=== PATIENT | female | born 1995 | race Caucasian/White ===

== ENCOUNTER 2017-11-28 16:01 | Emergency (ER) | payer BC ==
[2017-11-28 16:24] VITALS: BP 119/80
--- NOTE | 2017-11-28 16:25 | UC ---
Abdominal Pain Female HPI - HPI Summary HPI Summary: Pt presents with periumbilical and RLQ pain since this morning. She tells me that her pain began this morning around 0900 and has been getting progressively worse. Her pain feels like an ache and stabbing pain around her belly button and into her RLQ. She feels nauseous, but is still eating. Had loose bowel movements today. The pain has been so bad that standing up straight, lying flat , or walking causes her to become tearful due to the pain. Denies fever, chills , SOB, chest pain, vomiting, dysuria, or flank pain. - History of Current Complaint Chief Complaint: EDAbdPain Stated Complaint: ABDOMINAL PAIN Hx Obtained From: Patient Hx Last Menstrual Period: merena Onset/Duration: Sudden Onset Severity Initially: Moderate Severity Currently: Severe Pain Intensity: 8 Pain Scale Used: 0-10 Numeric Allergies/Adverse Reactions: Allergies Allergy/AdvReac Type Severity Reaction Status Date / Time No Known Allergies Allergy Verified 07/21/14 12:31 Home Medications: Home Medications ValACYclovir (*) [Valtrex 500 mg (*)] 11/28/17 [History] PMH/Surg Hx/FS Hx/Imm Hx - Additional Past Medical History Additional PMH: None Other History Of: Negative For: Anticoagulant Therapy - Surgical History Surgical History: None - Family History Known Family History: Positive: None - Social History Occupation: Employed Full-time Lives: With Family Alcohol Use: Daily Substance Use Type: None Smoking Status (MU): Heavy Every Day Tobacco Smoker Type: Cigarettes Amount Used/How Often: 1/2 ppd - Immunization History Most Recent Influenza Vaccination: fall 2013 Review of Systems Constitutional: Negative Skin: Negative Respiratory: Negative Cardiovascular: Negative Gastrointestinal: Abdominal Pain, Diarrhea, Nausea Genitourinary: Negative Neurovascular: Negative Neurological: Negative Psychological: Negative All Other Systems Reviewed And Are Negative: Yes Physical Exam - Summary Physical Exam Summary: GENERAL: NAD. WDWN. No pain distress. SKIN: No rashes, sores, lesions, or open wounds. NECK: Supple. Nontender. No lymphadenopathy. CHEST: CTAB. No r/r/w. No accessory muscle use. Breathing comfortably and in no distress. CV: RRR. Without m/r/g. Pulses intact. Brisk cap refill. ABDOMEN: Mild TTP LLQ. Moderate TTP RLQ and periumbilical. Soft. Mild guarding to RLQ. No distention. No organomegaly. No CVA tenderness. Bowel sounds present. Positive rovsings and obturator sign. Negative heel strike. NEURO: Alert. CN II-XII grossly intact. PSYCH: Age appropriate behavior. Triage Information Reviewed: Yes Vital Signs: Initial Vital Signs Temp 98.2 F 11/28/17 16:14 Pulse 62 11/28/17 16:14 Resp 16 11/28/17 16:14 BP 119/80 11/28/17 16:14 Pulse Ox 99 11/28/17 16:14 Abd Pain Female Course/Dx - Course Course Of Treatment: UA with 1+ blood and trace leuks. negative. Her symptoms and exam are concerning for appendicitis. I advised her to seek further evaluation in the ER - she was agreeable to this and elected to go by private car. - Differential Dx/Diagnosis Provider Diagnoses: RLQ pain. nausea Discharge - Sign-Out/Discharge Documenting (check all that apply): Discharge/Admit/Transfer - Discharge Plan Condition: Stable Disposition: HOME Referrals: Tashi Chang MD [Primary Care Provider] - Additional Instructions: Please go to the ER for further evaluation of your RLQ abdominal pain - Billing Disposition and Condition Condition: STABLE Disposition: HOME
== END 2017-11-28 17:03 | disposition home or self-care (01) ==
LOC: UCEAST 16:01
DX: R10.31 Right lower quadrant pain (principal); R11.0 Nausea; Z32.02 Encounter for pregnancy test, result negative; F17.210 Nicotine dependence, cigarettes, uncomplicated
CPT/HCPCS: 81003; 84702; 87086; 99202; G0463

== ENCOUNTER 2017-11-28 17:23 | Emergency (ER) | payer BC ==
[2017-11-28] MEDS ORDERED: Ketorolac INJ* 30 MG/ML 1 ML VIAL IV PUSH ONE (18:48)
[2017-11-28] MEDS ORDERED: Ondansetron ODT TAB* 4 MG PO ONE (18:48)
[2017-11-28] MEDS ORDERED: NS 0.9% 1000 ML* 1,000 ML IV ONE (18:48)
[2017-11-28 19:07] LABS: ABS Basophils 0 10^3/ul (0-0.2); ABS Eosinophils 0.1 10^3/ul (0-0.6); ABS Lymphocytes 2.2 10^3/ul (1.0-4.8); ABS Monocytes 0.6 10^3/ul (0-0.8); ABS Neutrophils 6.5 10^3/ul (1.5-7.7); ABS Nucleated RBC 0 10^3/ul; Eosinophil % 1.5 % (0-6); Hematocrit 38 % (35-47); Hemoglobin 13.3 g/dl (12.0-16.0); Mean Corpuscular HGB Conc 35 g/dl (31-36); Mean Corpuscular Hemoglobin 34 pg (27-31); Mean Corpuscular Volume 96 fL (80-97); Nucleated Red Blood Cells % 0; Platelet Count 304 10^3/ul (150-450); Red Blood Count 3.95 10^6/ul (4.0-5.4); Red Cell Distribution Width 13 % (10.5-15); White Blood Count 9.4 10^3/ul (3.5-10.8)
[2017-11-28 19:25] LABS: EGFR Non-African American 72.3 (>60)
--- NOTE | 2017-11-28 20:29 | RAD ---
HISTORY: Right upper quadrant pain. COMPARISONS: None TECHNIQUE: Multiple transverse and longitudinal ultrasound images were obtained of the right upper quadrant. FINDINGS: LIVER: The liver is normal in dimensions and echogenicity. Normal hepatic and portal venous blood flow is duplicated with color flow imaging. There is no gross intrahepatic biliary duct dilatation. GALLBLADDER AND EXTRAHEPATIC BILIARY DUCT: The gallbladder is mostly contracted which limits evaluation. The gallbladder is normal in appearance without intraluminal stones or other soft tissue masses. There is no pericholecystic fluid or gallbladder wall thickening. The common bile duct measures a maximum diameter of 2 mm. PANCREAS: The portions of the pancreas not obscured by bowel gas are normal in appearance. RIGHT KIDNEY: The right kidney is normal in size, morphology and echogenicity. AORTA AND IVC: The visualized portions are normal in appearance and not pathologically dilated. IMPRESSION: THE GALLBLADDER IS CONTRACTED WHICH LIMITS EVALUATION IN THIS OTHERWISE NORMAL RIGHT UPPER QUADRANT ULTRASOUND.
[2017-11-28 21:47] VITALS: BP 124/81
--- NOTE | 2017-11-28 22:30 | ED ---
Abdominal Pain/Female - HPI Summary HPI Summary: Pt. is a 22-year-old female who presents to emergency department for right upper quadrant abdominal pain times one day. Pain is intermittent. Pain initially started about 15 minutes after eating. Patient admits to associated symptoms of nausea. Denies vomiting. Also notes loose stools. Denies urinary symptoms. Denies upper respiratory symptoms, fever or chills. No significant past medical history. Symptoms are moderate in severity. - History of Current Complaint Chief Complaint: EDAbdPain Stated Complaint: ABD PAIN Time Seen by Provider: 11/28/17 18:41 Hx Obtained From: Patient Hx Last Menstrual Period: merena Pain Intensity: 2 Pain Scale Used: 0-10 Numeric Allergies/Adverse Reactions: Allergies Allergy/AdvReac Type Severity Reaction Status Date / Time No Known Allergies Allergy Verified 11/28/17 17:28 Home Medications: Home Medications ValACYclovir (*) [Valtrex 500 mg (*)] 500 mg PO DAILY 11/28/17 [History Confirmed 11/28/17] PMH/Surg Hx/FS Hx/Imm Hx Previously Healthy: Yes Endocrine/Hematology History: Denies: Hx Anticoagulant Therapy, Hx Diabetes Cardiovascular History: Denies: Hx Hypertension, Hx Pacemaker/ICD Respiratory History: Denies: Hx Asthma, Hx Chronic Obstructive Pulmonary Disease (COPD) Neurological History: Denies: Hx Dementia Psychiatric History: Denies: Hx Eating Disorder, Hx of Violent Episodes Against Others Infectious Disease History: No Infectious Disease History: Denies: Hx Clostridium Difficile, Hx Hepatitis, Hx Human Immunodeficiency Virus (HIV), Hx Shingles, Hx Tuberculosis, Hx Known/Suspected VRE, Hx Known/ Suspected VRSA, History Other Infectious Disease, Traveled Outside the [place] in Last 30 Days - Social History Occupation: Employed Full-time Lives: With Family Alcohol Use: Daily Alcohol Amount: 1 glass wine Substance Use Type: Reports: None Smoking Status (MU): Light Every Day Tobacco Smoker Type: Cigarettes Amount Used/How Often: 1/2 ppd Review of Systems Constitutional: Negative Negative: Fever, Chills Eyes: Negative ENT: Negative Cardiovascular: Negative Negative: Palpitations, Chest Pain Negative: Shortness Of Breath, Cough Positive: Abdominal Pain, Diarrhea, Nausea. Negative: Vomiting Genitourinary: Negative All Other Systems Reviewed And Are Negative: Yes Physical Exam Triage Information Reviewed: Yes Vital Signs On Initial Exam: Initial Vitals Temp Pulse Resp BP Pulse Ox 99.2 F 75 16 132/85 98 11/28/17 17:25 11/28/17 17:25 11/28/17 17:25 11/28/17 17:25 11/28/17 17:25 Vital Signs Reviewed: Yes Appearance: Positive: Well-Appearing - Patient lying in bed in no acute distress. Skin: Positive: Warm, Dry Head/Face: Positive: Normal Head/Face Inspection Eyes: Positive: Normal, ALEXYS Neck: Positive: Supple Respiratory/Lung Sounds: Positive: Clear to Auscultation, Breath Sounds Present Cardiovascular: Positive: Normal, RRR Abdomen Description: Positive: Other: - Abdomen is soft with mild pain to the right upper quadrant. Negative Shay's sign. No CVA tenderness bilaterally. Neurological: Positive: Normal, CN Intact II-III Diagnostics - Vital Signs Vital Signs Temp Pulse Resp BP Pulse Ox 11/28/17 21:46 98.8 F 71 16 124/81 99 11/28/17 17:25 99.2 F 75 16 132/85 98 - Laboratory Lab Results: Lab Results 11/28/17 11/28/17 Range/Units 18:58 18:58 WBC 9.4 (3.5-10.8) 10^3/ul RBC 3.95 L (4.0-5.4) 10^6/ul Hgb 13.3 (12.0-16.0) g/dl Hct 38 (35-47) % MCV 96 (80-97) fL MCH 34 H (27-31) pg MCHC 35 (31-36) g/dl RDW 13 (10.5-15) % Plt Count 304 (150-450) 10^3/ul MPV 7.0 L (7.4-10.4) um3 Neut % (Auto) 69.0 (38-83) % Lymph % (Auto) 23.0 L (25-47) % Freestone % (Auto) 6.3 (0-7) % Eos % (Auto) 1.5 (0-6) % Baso % (Auto) 0.2 (0-2) % Absolute Neuts (auto) 6.5 (1.5-7.7) 10^3/ul Absolute Lymphs (auto) 2.2 (1.0-4.8) 10^3/ul Absolute Monos (auto) 0.6 (0-0.8) 10^3/ul Absolute Eos (auto) 0.1 (0-0.6) 10^3/ul Absolute Basos (auto) 0 (0-0.2) 10^3/ul Absolute Nucleated RBC 0 10^3/ul Nucleated RBC % 0 Sodium 139 (139-145) mmol/L Potassium 3.6 (3.5-5.0) mmol/L Chloride 104 (101-111) mmol/L Carbon Dioxide 26 (22-32) mmol/L Anion Gap 9 (2-11) mmol/L BUN 16 (6-24) mg/dL Creatinine 0.95 (0.51-0.95) mg/dL Est GFR ( Amer) 92.9 (>60) Est GFR (Non-Af Amer) 72.3 (>60) BUN/Creatinine Ratio 16.8 (8-20) Glucose 97 (70-100) mg/dL Calcium 9.4 (8.6-10.3) mg/dL Total Bilirubin 0.60 (0.2-1.0) mg/dL AST 13 (13-39) U/L ALT 11 (7-52) U/L Alkaline Phosphatase 45 (34-104) U/L Total Protein 7.4 (6.4-8.9) g/dL Albumin 4.5 (3.2-5.2) g/dL Globulin 2.9 (2-4) g/dL Albumin/Globulin Ratio 1.6 (1-3) Lipase 14 (11.0-82.0) U/L Beta HCG, Quant < 0.60 mIU/mL Result Diagrams: 11/28/17 18:58 11/28/17 18:58 Lab Statement: Any lab studies that have been ordered have been reviewed, and results considered in the medical decision making process. Abdominal Pain Fem Course/Dx - Course Course Of Treatment: Presenting to the ear for intermittent right upper quadrant abdominal pain. She does have mild right upper quadrant pain on exam. We'll obtain labs and gallbladder ultrasound further evaluation. Patient was given IV Toradol and Zofran. Labs are unremarkable. Gallbladder ultrasound is negative for acute findings, reading per radiology. Reexamination patient is resting comfortably. She states her pain was mildly relieves but did return. She has benign abdominal exam. Results were discussed. Recommend close follow- up with family doctor for possible referral to GI for HIDA scan. Advised Tylenol for pain as directed. To avoid foods high in fat, degrees, sugar. Return to the ER symptoms change or worsen. Patient understands and agrees with this plan. - Diagnoses Differential Diagnosis: Positive: Appendicitis, Bowel Obstruction, Ectopic , Gall Bladder Disease, Hepatitis Provider Diagnoses: Abdominal pain Discharge - Sign-Out/Discharge Documenting (check all that apply): Discharge/Admit/Transfer - Discharge Plan Condition: Good Disposition: HOME Patient Education Materials: Gallbladder Ejection Fraction (DC), Abdominal Pain (ED) Referrals: Tashi Chang MD [Primary Care Provider] - Additional Instructions: Call your PCP tomorrow for further evaluation You may need referred to GI for a HIDA scan to evaluate gallbladder Avoid foods high in fat, grease, sugar Tylenol for pain as directed Return to ER for increased pain, fever, vomiting - Billing Disposition and Condition Condition: GOOD Disposition: HOME
== END 2017-11-28 21:46 | disposition home or self-care (01) ==
LOC: ED 17:23
DX: R10.11 Right upper quadrant pain (principal); F17.210 Nicotine dependence, cigarettes, uncomplicated
CPT/HCPCS: 36415; 76705; 80053; 83690; 84702; 85025; 96361; 96374; 99284; A9270-GY; J1885

== ENCOUNTER 2021-06-23 11:35 | Inpatient (IN) ==
[2021-06-23] MEDS ORDERED: Lactated Ringers 1000 ml BAG 1,000 ML IV ONE ×2 (11:38→16:20)
[2021-06-23] MEDS ORDERED: Lactated Ringers 1000 ml BAG 1,000 ML IV SCH ×3 (12:00→20:00)
[2021-06-23] MEDS ORDERED: Oxytocin in LR 20 UNITS/1,000 ML BAG IVPB SCH ×2 (12:00→18:31)
[2021-06-23] MEDS ORDERED: Oxytocin in LR 20 UNITS/1,000 ML BAG IVPB ONE (12:41)
[2021-06-23 13:30] LABS: ABS Eosinophils 0.1 10^3/ul (0-0.6); ABS Lymphocytes 1.5 10^3/ul (1.0-4.8); ABS Monocytes 0.9 10^3/ul (0-0.8); ABS Neutrophils 11.6 10^3/ul (1.5-7.7); Eosinophil % 0.6 %; Hematocrit 29 % (35-47); Hemoglobin 9.9 g/dL (12.0-16.0); Lymphocyte % 10.4 %; Mean Corpuscular HGB Conc 34 g/dL (31-36); Mean Corpuscular Hemoglobin 31 pg (27-31); Mean Corpuscular Volume 91 fL (80-97); Mean Platelet Volume 7.3 fL (7.4-10.4); Platelet Count 256 10^3/uL (150-450); Red Blood Count 3.18 10^6 /uL (3.70-4.87); Red Cell Distribution Width 14 % (10-15); White Blood Count 14.1 10^3/uL (3.5-10.8)
[2021-06-23 13:34] LABS: Urine Appearance Cloudy; Urine Bilirubin Negative (Negative); Urine Blood Negative (Negative); Urine Color Yellow; Urine Glucose Negative (Negative); Urine Ketones Negative (Negative); Urine Nitrite Negative (Negative); Urine Protein Negative (Negative); Urine Specific Gravity 1.009 (1.002-1.030); Urine Urobilinogen Negative (Negative)
[2021-06-23 13:44] LABS: Urine Amorphous Crystals Present (Absent); Urine Bacteria 1+ (Absent); Urine Red Blood Cell 1+(3-5/hpf) (Absent); Urine Squamous Epithelial Cell Present (Absent); Urine White Blood Cell 3+(>20/hpf) (Absent)
[2021-06-23 14:01] LABS: Rapid COVID-19 Molecular Undetected (Undetected)
[2021-06-23 14:22] LABS: Urine Benzodiazepine Screen None Detected (None Detect); Urine Cannabinoids Screen None Detected (None Detect); Urine Opiates Screen None Detected (None Detect)
[2021-06-23] MEDS ORDERED: OBEPIDURAL 250 ML EPIDURAL ONE (15:37)
[2021-06-23] MEDS ORDERED: EPHEDrine (Pressors) 50 MG/ML VIAL IV PUSH PRN ×2 (16:20)
[2021-06-23] MEDS ORDERED: Phenylephrine 40 mcg/mL 10mL (400mcg) SYRINGE IV PUSH PRN ×2 (16:20)
[2021-06-23] MEDS ORDERED: Sodium Citrate/Citric Acid LIQ 15 ML UDC PO PRN (16:20)
[2021-06-23] MEDS ORDERED: OBEPIDURAL 250 ML EPIDURAL SCH (17:00)
[2021-06-23] MEDS ORDERED: Dibucaine 1% OINT 28.35 GM TUBE PR PRN (19:01)
[2021-06-23] MEDS ORDERED: Witch Hazel PAD JAR TOPICAL PRN (19:01)
[2021-06-23] MEDS ORDERED: Methylergonovine 0.2 mg AMPULE 1 ml AMP IM ONE (19:02)
[2021-06-23] MEDS ORDERED: ceFOXitin 2 GM IVPREMIX 2 GM/50 ML BAG IVPB ONE (19:04)
[2021-06-23] MEDS ORDERED: Lidocaine 1% VIAL 10 MG/ML VIAL ONE (23:45)
[2021-06-24 09:46] LABS: ABS Eosinophils 0.1 10^3/ul (0-0.6); ABS Lymphocytes 1.8 10^3/ul (1.0-4.8); ABS Monocytes 0.9 10^3/ul (0-0.8); ABS Neutrophils 13.6 10^3/ul (1.5-7.7); Eosinophil % 0.8 %; Hematocrit 28 % (35-47); Hemoglobin 9.3 g/dL (12.0-16.0); Lymphocyte % 11.1 %; Mean Corpuscular HGB Conc 33 g/dL (31-36); Mean Corpuscular Hemoglobin 30 pg (27-31); Mean Corpuscular Volume 91 fL (80-97); Mean Platelet Volume 7.5 fL (7.4-10.4); Platelet Count 243 10^3/uL (150-450); Red Blood Count 3.08 10^6 /uL (3.70-4.87); Red Cell Distribution Width 14 % (10-15); White Blood Count 16.4 10^3/uL (3.5-10.8)
[2021-06-24 15:21] VITALS: BP 115/61
== END 2021-06-24 19:15 | disposition home or self-care (01) | DRG 560 ==
LOC: MCHOBOUT 11:35 → MCHOB 12:23
PROVIDERS: ADMIT Midwife; ATTEND Midwife